=== PATIENT | male | born 1965 | race African-American/Black ===

== ENCOUNTER 2017-04-23 09:53 | Emergency (ER) | payer OTHER ==
[~2017-04-23] VITALS: Ht 172.7 cm; Wt 113.5 kg
[~2017-04-23 09:53] MED LIST: AMOX500C2 PO; IBUP400T22 PO; UDROBDM PO
[2017-04-23 09:55] VITALS: Ht 172.7 cm; Wt 113.5 kg
--- NOTE | 2017-04-23 10:24 | ERD ---
ER Documentation Chief Complaint Date/Time DATE: 04/23/17 TIME: 10:19 Chief Complaint LEFT LEG SWELLING NEAR THE ANKLE HPI 51 year old male comes in with left extremity pain and swelling for 1-2 weeks.Patient states that he has been currently going to the gym 2 to stairs, and he has been sleeping with his leg off the bed due to pain at his left knee. Subsequently, he developed swelling of his left lower extremity around the ankle and has had pain. Patient also states that his right leg is bothering him but not as much as the left side. He denies trauma. Denies chest pain, shortness of breath or orthopnea. ROS All systems reviewed and are negative except as per history of present illness. Medications Home Meds Active Scripts Naproxen* (Naprosyn*) 500 Mg Tablet, 500 MG PO BID Y for PAIN AND/OR INFLAMMATION, #30 TAB Prov:CLAUDIA MINAYA PA-C 04/23/17 Guaifenesin-Dextromethorphan* (Robitussin* DM) 100MG/10MG/5ML Syrup, 5 ML PO Q6H Y for COUGH, #120 ML 0 Refills Prov:MINNIE RAMSEY PA-C 10/08/15 Amoxicillin* (Amoxicillin*) 500 Mg Cap, 500 MG PO TID, #21 CAP 0 Refills Prov:MINNIE RAMSEY PA-C 10/08/15 Ibuprofen* (Motrin*) 400 Mg Tab, 400 MG PO Q6, #30 TAB 0 Refills Prov:MINNIE RAMSEY PA-C 10/08/15 Allergies Allergies: Coded Allergies: No Known Allergy (Unverified , 04/23/17) PMhx/Soc Medical and Surgical Hx: pt denies Surgical Hx History of Surgery: No Anesthesia Reaction: No Hx Neurological Disorder: No Hx Respiratory Disorders: No Hx Cardiac Disorders: Yes (hypertesnion; pre diabetes) Hx Psychiatric Problems: No Hx Miscellaneous Medical Probl: Yes (umbilical hernia) Hx Alcohol Use: Yes (socially) Hx Substance Use: No Hx Tobacco Use: No Smoking Status: Never smoker Physical Exam Vitals Vital Signs Date Time Temp Pulse Resp B/P Pulse Ox O2 Delivery O2 Flow Rate FiO2 04/23/17 09:55 97.3 90 18 138/88 97 Physical Exam General: Well-developed, well-nourished. The patient appears in no acute distress. HEENT: Head is normocephalic, atraumatic. No scleral icterus. Neck: Supple. Nontender. Lungs: Clear to auscultation. Normal air movement. Heart: Regular rate and rhythm. S1 and S2 are normal. No murmurs, gallops, or rubs. Abdomen: Soft, nontender, nondistended. Bowel sounds are normoactive. Extremities: No acute bony deformities of the left knee, full R OM. Negative Homans sign. Patient has swelling around the left ankle and foot. There is no pedal edema. Right lower extremity has mild swelling, no pedal edema. Dorsalis pedis pulses 2+ bilaterally. Neurologic: Alert and oriented 3. No focal deficits. Skin: Normal turgor. No rash or lesions. Results 24 hrs DIAGNOSTIC IMAGING REPORT Patient: CHRISTIANO BEST : 1965 Age: 51 Sex: M MR #: [id number] DOS: 04/23/17 1012 Ordering MD: CLAUDIA MINAYA PA-C Location: [facility] Room/Bed: PROCEDURE: Left knee series CLINICAL INDICATION: Pain TECHNIQUE: AP, lateral and oblique images were obtained of the left knee. COMPARISON: None FINDINGS: There is moderate degenerate joint disease left knee worse involving the medial compartment. There is no evidence of acute fracture or dislocation. The bony mineralization is normal. No focal bony blastic or lytic lesions. Is a small left knee joint effusion. IMPRESSION: 1. Moderate degenerate joint disease left knee without evidence acute fracture dislocation per 2. Small left knee joint effusion. RPTAT:AAJJ Physician Tahir Date Time Electronically viewed and signed by Physician Tahir on 04/23/2017 12:01 BM/ CC: CLAUDIA MINAYA PA-C DIAGNOSTIC IMAGING REPORT Patient: CHRISTIANO BEST : 1965 Age: 51 Sex: M MR #: [id number] DOS: 04/23/17 1015 Ordering MD: CLAUDIA MINAYA PA-C Location: [facility] Room/Bed: PROCEDURE: Ultrasound of the bilateral lower extremity venous system. CLINICAL INDICATION: Bilateral leg pain and swelling, deep venous thrombosis TECHNIQUE: Abdalla scale with and without compression, color doppler, spectral doppler of the venous system of the bilateral lower extremities was performed. Venous augmentation maneuvers were utilized. COMPARISON: No prior studies are available for comparison. FINDINGS: Right: Common femoral vein: Patent. Femoral vein: Patent. Popliteal vein: Patent. Calf veins: Patent. No soft tissue abnormalities are identified. Left: Common femoral vein: Patent. Femoral vein: Patent. Popliteal vein: Patent. Calf veins: Patent. No soft tissue abnormalities are identified. IMPRESSION: No evidence of a deep vein thrombosis within the bilateral lower extremities. RPTAT: AADD .Lemuel Hartley MD, Date Time Electronically viewed and signed by .Lemuel Hartley MD, on 04/23/2017 11:52 .B/ CC: CALUDIA MINAYA PA-C Procedures/MDM 51-year-old male comes in with left lower extremity pain and swelling, patient likely is causing swelling to the position and when she sleeps in. Patient will be advised to take NSAIDs and use a compression stocking. He likely has some mild arthritis of the left knee exacerbated with exercise. There are no signs of CHF, cellulitis, DVT. No signs of fracture dislocation or neurovascular injury. Departure Diagnosis: Primary Impression: Pain of left leg Condition: Good CLAUDIA MINAYA PA-C Apr 23, 2017 10:24
--- NOTE | 2017-04-23 11:53 | RADRPT ---
PROCEDURE: Ultrasound of the bilateral lower extremity venous system. CLINICAL INDICATION: Bilateral leg pain and swelling, deep venous thrombosis TECHNIQUE: Abdalla scale with and without compression, color doppler, spectral doppler of the venous system of the bilateral lower extremities was performed. Venous augmentation maneuvers were utilized . COMPARISON: No prior studies are available for comparison. FINDINGS: Right: Common femoral vein: Patent. Femoral vein: Patent. Popliteal vein: Patent. Calf veins: Patent. No soft tissue abnormalities are identified. Left: Common femoral vein: Patent. Femoral vein: Patent. Popliteal vein: Patent. Calf veins: Patent. No soft tissue abnormalities are identified. IMPRESSION: No evidence of a deep vein thrombosis within the bilateral lower extremities. RPTAT: AADD .Lemuel Hartley MD, MD Date Time Electronically viewed and signed by .Lemuel Hartley MD, MD on 04/23/2017 11:52 .B/
--- NOTE | 2017-04-23 12:01 | RADRPT ---
PROCEDURE: Left knee series CLINICAL INDICATION: Pain TECHNIQUE: AP, lateral and oblique images were obtained of the left knee. COMPARISON: None FINDINGS: There is moderate degenerate joint disease left knee worse involving the medial compartment. There i s no evidence of acute fracture or dislocation. The bony mineralization is normal. No focal bony williams stic or lytic lesions. Is a small left knee joint effusion. IMPRESSION: 1. Moderate degenerate joint disease left knee without evidence acute fracture dislocation per 2. Small left knee joint effusion. RPTAT:AAJJ Physician Tahir Date Time Electronically viewed and signed by Isac Mcclure Physician on 04/23/2017 12:01 BM/
[2017-04-23] MEDS ORDERED: NAPR-260 PO (12:28)
== END 2017-04-23 13:03 | disposition home or self-care (01) ==
LOC: FTE 09:53
DX: M79.605 Pain in left leg (principal); I10 Essential (primary) hypertension
CPT/HCPCS: 73562; 93970; Z7502

== ENCOUNTER 2017-05-25 11:49 | Emergency (ER) | payer OTHER ==
[~2017-05-25] VITALS: Ht 182.9 cm; Wt 113.0 kg
[~2017-05-25 11:49] MED LIST changes: +NAPR-260 PO
[2017-05-25 11:52] VITALS: Ht 182.9 cm; Wt 113.0 kg
--- NOTE | 2017-05-25 14:05 | ERD ---
ER Documentation Chief Complaint Chief Complaint LOWER LEG/CALF PAIN HPI 51-year-old male with a history of stroke presenting with a chief complaint of leg calf pain and swelling 4 days. Similar symptoms 1 month ago that was worked up with x-ray and ultrasound and was negative. Patient denies trauma, loss of range of motion, numbness, tingling, or other rapidly progressive neurological deficits. He has taken ibuprofen with minimal relief. Worse with movement and palpation. No alleviating factors. Patient has no other complaints and describes no other associated manifestations. Nursing notes have been reviewed and are consistent with history given. ROS All systems reviewed and are negative except as per history of present illness. Medications Home Meds Active Scripts Naproxen* (Naprosyn*) 500 Mg Tablet, 500 MG PO BID Y for PAIN AND/OR INFLAMMATION, #30 TAB Prov:CLAUDIA MINAYA PA-C 04/23/17 Guaifenesin-Dextromethorphan* (Robitussin* DM) 100MG/10MG/5ML Syrup, 5 ML PO Q6H Y for COUGH, #120 ML 0 Refills Prov:MINNIE RAMSEY PA-C 10/08/15 Amoxicillin* (Amoxicillin*) 500 Mg Cap, 500 MG PO TID, #21 CAP 0 Refills Prov:MINNIE RAMSEY PA-C 10/08/15 Ibuprofen* (Motrin*) 400 Mg Tab, 400 MG PO Q6, #30 TAB 0 Refills Prov:MINNIE RAMSEY PA-C 10/08/15 Allergies Allergies: Coded Allergies: No Known Allergy (Unverified , 04/23/17) PMhx/Soc History of Surgery: No Anesthesia Reaction: No Hx Neurological Disorder: No Hx Respiratory Disorders: No Hx Cardiac Disorders: Yes (hypertesnion; pre diabetes) Hx Psychiatric Problems: No Hx Miscellaneous Medical Probl: Yes (umbilical hernia) Hx Alcohol Use: Yes (socially) Hx Substance Use: No Hx Tobacco Use: No Smoking Status: Never smoker Physical Exam Vitals Vital Signs Date Time Temp Pulse Resp B/P Pulse Ox O2 Delivery O2 Flow Rate FiO2 05/25/17 11:52 98.7 90 22 138/96 99 Physical Exam Const: Overweight 51-year-old male no acute distress. Head: Atraumatic Eyes: Normal Conjunctiva ENT: Normal External Ears, Nose and Mouth. Neck: Full range of motion..~ No meningismus. Resp: Clear to auscultation bilaterally Cardio: Regular rate and rhythm, no murmurs. Posterior tibial and dorsalis pedis pulses 2+ bilaterally. Cap refill less than 2 seconds. Skin is warm. Abd: Soft, non tender, non distended. Normal bowel sounds Skin: No petechiae or rashes Back: No midline or flank tenderness Ext: No cyanosis, or edema. Mild tenderness to palpation of the left knee. Tendons intact. Negative Lockman's. Neur: Awake and alert. Abnormal gait secondary to prior stroke. Psych: Normal Mood and Affect Procedures/MDM 51-year-old male with history of stroke presents with left lower extremity pain. Previous visit shows venous ultrasound and x-ray being unremarkable. Venous ultrasound and x-ray were obtained again today and given the following results: Ultrasound unremarkable. X-ray: Joint narrowing and osteophytes Findings are most consistent with arthritis. No trauma. No warmth or signs of septic joint. I have no suspicion for other serious bacterial infection, acute bony pathology, or neurovascular compromise. Patient will be advised to continue ibuprofen Tylenol for pain management. Narcotics are not indicated. I have spoke with the patient regarding their condition and future management. They have verbally responded that they understand their status and treatment plan. The patients vitals are stable, and their current condition is appropriate for discharge. The patient will be given discharge instructions with return precautions. Departure Diagnosis: Primary Impression: Pain of left leg Condition: Stable Additional Instructions: Follow up with your PCP within the next 1-3 days for a more thorough evaluation and a possible referral to a specialist. Return the the emergency department immediately if symptoms worsen or change. If you have any questions regarding medications, ask your pharmacist or us before you leave. If any adverse reactions occur while taking your medications, discontinue the treatment and return to the emergency department immediately. Take your medications as directed, and complete the entire course of treatment. CHAYO CANALES PA-C May 25, 2017 14:05
--- NOTE | 2017-05-25 15:38 | RADRPT ---
PROCEDURE: US Lower extremity Venous. CLINICAL INDICATION: Pain and swelling TECHNIQUE: Multiple sonographic images of the left lower extremity deep venous system was obtained utilizing grayscale, color-flow, compressive sonography and doppler imaging with augmentation. The images were reviewed on a PACS workstation. COMPARISON: None. FINDINGS: There is normal compressibility and flow within the left common femoral, deep femoral, superficial f emoral, posterior tibial, peroneal and popliteal veins. IMPRESSION: No sonographic evidence for deep venous thrombosis. RPTAT:AAJJ Physician Jose Date Time Electronically viewed and signed by Physician Jose on 05/25/2017 15:38 /
--- NOTE | 2017-05-25 15:39 | RADRPT ---
PROCEDURE: Left knee x-ray CLINICAL INDICATION: Pain, and TECHNIQUE: AP, lateral and oblique views of the knee were obtained. COMPARISON: 04/23/2017 FINDINGS: There is normal mineralization. No fracture is identified. There is moderate joint space narrowing in the medial femorotibial compartment with medial and later al osteophytes. A small joint effusion is present. There is no significant soft tissue swelling. IMPRESSION: 1. Moderate joint space narrowing in the medial femorotibial compartment with medial and lateral os teophytes. 2. Small joint effusion is present. RPTAT:AAJJ Physician Jose Date Time Electronically viewed and signed by Marcio Silva Physician on 05/25/2017 15:39 /
[2017-05-25 16:10] VITALS: BP 170/94; PULSE 60; RESP 16
== END 2017-05-25 16:11 | disposition home or self-care (01) ==
LOC: FTE 11:49
DX: M79.605 Pain in left leg (principal); I10 Essential (primary) hypertension
CPT/HCPCS: 73562; 93971; Z7502

== ENCOUNTER 2017-12-30 15:37 | Emergency (ER) | END 2017-12-30 18:08 | disposition home or self-care (01) ==

== ENCOUNTER 2018-03-27 12:56 | Emergency (ER) | END 2018-03-27 16:57 | disposition home or self-care (01) ==

== ENCOUNTER 2018-09-15 18:18 | Observation (INO) | payer OTHER ==
[~2018-09-15] VITALS: Ht 182.9 cm; Wt 109.2 kg
[~2018-09-15 18:18] MED LIST changes: +CLIN300C10 PO; +GUAI5SYR2 PO; +IBUP-1542 PO; +IBUP-1561 PO; -IBUP400T22 PO; +MUPI22OI2 TOP; -NAPR-260 PO; +NAPR-985 PO; -UDROBDM PO
--- NOTE | 2018-09-15 18:46 | ERD ---
ER Documentation Chief Complaint Chief Complaint DIZZINESS X 4 DAYS HPI 52-year-old gentleman history of hypertension, diabetes who presents to the emergency room with generalized symptoms. The patient states that he felt generally weak over the past 2-3 days. He did not take his blood pressure medication and his blood pressure has been elevated. He is describing occipital headache. He also describes some generalized fatigue and denies any chest pain. No nausea or diaphoresis. No exertional symptoms. ROS All systems reviewed and are negative except as per history of present illness. Medications Home Meds Reported Medications Atorvastatin* (Atorvastatin*) 80 Mg Tablet, 80 MG PO QHS, #30 TAB 09/15/18 Amlodipine Besylate* (Norvasc*) 5 Mg Tablet, 5 MG PO DAILY, TAB 09/15/18 Ibuprofen* (Ibuprofen*) 600 Mg Tablet, 600 MG PO BID, TAB 09/15/18 Losartan-Hydrochlorothiazide (Losartan-HCTZ) 100-12.5 Mg Tab, 1 TAB PO DAILY, TAB 09/15/18 Metformin Hcl* (Metformin Hcl*) 500 Mg Tablet, 500 MG PO WITH BREAKFAST DINNE, #60 TAB 09/15/18 Discontinued Scripts Ibuprofen* (Motrin*) 600 Mg Tab, 600 MG PO Q6H PRN for PAIN AND OR ELEVATED TEMP, #30 TAB Prov:JIMMIE ATKINS NP 03/27/18 Mupirocin* (Bactroban*) 2% -22 Gram Oint...g., 1 APPLIC TOP BID for 7 Days, EA Prov:KRISHNA CHAPA MD 12/30/17 Clindamycin Hcl* (Clindamycin Hcl*) 300 Mg Capsule, 300 MG PO TID for 10 Days, CAP Prov:KRISHNA CHAPA MD 12/30/17 Naproxen* (Naprosyn*) 500 Mg Tablet, 500 MG PO BID PRN for PAIN AND/OR INFLAMMATION, #30 TAB Prov:CLAUDIA HAN PA-C 04/23/17 Guaifenesin-Dextromethorphan* (Robitussin* DM) 100MG/10MG/5ML Syrup, 5 ML PO Q6H PRN for COUGH, #120 ML 0 Refills Prov:MINNIE RAMSEY PA-C 10/08/15 Amoxicillin* (Amoxicillin*) 500 Mg Cap, 500 MG PO TID, #21 CAP 0 Refills Prov:MINNIE RAMSEY PA-C 10/08/15 Ibuprofen* (Motrin*) 400 Mg Tab, 400 MG PO Q6, #30 TAB 0 Refills Prov:BRAULIOMINNIE LANDERS 10/08/15 Allergies Allergies: Coded Allergies: No Known Allergy (Unverified , 09/15/18) PMhx/Soc History of Surgery: No Anesthesia Reaction: No Hx Neurological Disorder: No Hx Respiratory Disorders: No Hx Cardiac Disorders: Yes (HTN ) Hx Psychiatric Problems: No Hx Miscellaneous Medical Probl: Yes (umbilical hernia, DM ) Hx Alcohol Use: Yes (socially) Hx Substance Use: No Hx Tobacco Use: No FmHx Family History: diabetes Physical Exam Vitals Vital Signs Date Temp Pulse Resp B/P (MAP) Pulse Ox O2 O2 Flow FiO2 Time Delivery Rate 09/15/18 75 15 127/83 100 Room Air 21:37 (98) 09/15/18 98.1 88 18 149/89 99 18:20 (109) Physical Exam General: Well developed, well nourished, no acute distress Head: Normocephalic, atraumatic. Eyes: Pupils equally reactive, EOM intact ENT: Moist mucous membranes Neck: Supple, no lymphadenopathy Respiratory: Lungs clear bilaterally, no distress Cardiovascular: RRR, no murmurs, rubs, or gallops Abdominal: Soft, non-tender, non-distended, no peritoneal signs : Deferred MSK: No edema, no unilateral swelling, 5/5 strength Neurologic: Alert and oriented, moving all extremities, normal speech, no focal weakness, no cerebellar signs Skin: No rash Psych: Normal mood Result Diagram: 09/15/18185609/15/181856 Results 24 hrs Laboratory Tests Test 09/15/18 18:57 White Blood Count 4.5 10^3/ul Red Blood Count 5.45 10^6/ul Hemoglobin 13.2 g/dl Hematocrit 41.2 % Mean Corpuscular Volume 75.6 fl Mean Corpuscular Hemoglobin 24.2 pg Mean Corpuscular Hemoglobin Concent 32.0 g/dl Red Cell Distribution Width 15.0 % Platelet Count 211 10^3/UL Mean Platelet Volume 9.8 fl Immature Granulocytes % 0.200 % Neutrophils % 49.9 % Lymphocytes % 37.1 % Monocytes % 10.2 % Eosinophils % 2.2 % Basophils % 0.4 % Nucleated Red Blood Cells % 0.0 /100WBC Immature Granulocytes # 0.010 10^3/ul Neutrophils # 2.2 10^3/ul Lymphocytes # 1.7 10^3/ul Monocytes # 0.5 10^3/ul Eosinophils # 0.1 10^3/ul Basophils # 0.0 10^3/ul Nucleated Red Blood Cells # 0.0 10^3/ul Sodium Level 135 mmol/L Potassium Level 3.8 mmol/L Chloride Level 97 mmol/L Carbon Dioxide Level 29 mmol/L Anion Gap 9 Blood Urea Nitrogen 21 mg/dl Creatinine 0.77 mg/dl Est Glomerular Filtrat Rate mL/min > 60 mL/min Glucose Level 93 mg/dl Calcium Level 9.3 mg/dl Troponin I < 0.012 ng/ml Current Medications Medications Dose Sig/Shannon Start Time Status Last (Trade) Ordered Route PRN Stop Time Admin Dose Reason Admin Morphine 4 mg ONCE STAT 09/15/18 DC 09/15/18 Sulfate IV 19:28 19:34 (morphine) 09/15/18 19:29 Ondansetron 4 mg ONCE STAT 09/15/18 DC 09/15/18 HCl (Zofran ODT 19:28 19:34 Odt) 09/15/18 19:29 Aspirin 162 mg ONCE ONCE 09/15/18 DC 09/15/18 (Aspirin) PO 20:30 20:33 09/15/18 20:31 Ondansetron 4 mg ER BRIDGE 09/15/18 HCl (Zofran PRN IV 20:30 Inj) NAUSEA/VOMITI 09/16/18 20:29 NG 650 mg ER BRIDGE 09/15/18 Acetaminophen PRN PO 20:30 (Tylenol .MILD PAIN 09/16/18 20:29 Tab) 1-3 OR TEMP Amlodipine 5 mg DAILY PO 09/16/18 UNV Besylate 09:00 (Norvasc) 80 mg QHS PO 09/16/18 UNV Atorvastatin 21:00 Calcium (Lipitor) Losartan 100 mg DAILY PO 09/16/18 UNV Potassium 09:00 (Cozaar) Procedures/MDM EKG, MONITORS, & DIAGNOSTIC IMAGING: EKG: I reviewed and interpreted a 12-lead EKG. Rhythm: Normal sinus rhythm ST Changes: No contiguous ST segment elevations T waves: T wave inversions in the inferior and lateral leads Impression: Abnormal EKG, changes from prior EKG noted Repeat EKG: I reviewed and interpreted a 12-lead EKG. Rhythm: Normal sinus rhythm ST Changes: No contiguous ST segment elevations T waves: T wave inversions in the inferior and lateral leads Impression: Abnormal EKG, changes from prior EKG noted Chest x-ray: I reviewed and interpreted a 1 view of the chest Mediastinum: No enlargement Cardiac silhouette: No cardiomegaly Airspace: Clear lung george bilaterally without evidence of pneumothorax Bones: No evidence of fracture CT brain: IMPRESSION: 1. No acute intracranial hemorrhage, transcortical infarction or mass effect. 2. Mild intracranial atherosclerosis and chronic small vessel ischemic changes. 3. Age indeterminate infarct in the right cooley radiata/lentiform nucleus. Please note MRI is more sensitive for detection of acute ischemia and can be obtained as clinically warranted. 4. Partially empty sella turcica. 5. Mild generalized cerebral volume loss. RPTAT: HFN PROCEDURES: [None] LAB INTERPRETATION: * neg trop MEDICAL DECISION MAKING: The patient's history, physical exam and clinical presentation is concerning for hypertensive urgency versus emergency. The patient's EKG shows T wave inversions in the inferior and lateral leads concerning for possible cardiac process. Given the patient's elevated blood pressure I would recommend hospitalization for serial enzymes and cardiology consultation. CT brain is also appropriate. ER COURSE: * The patient has an abnormal EKG. His symptoms are possibly consistent with hypertensive urgency versus emergency. Inpatient hospitalization for further evaluation would be appropriate. * ASA given CONSULTATION: [None] DISPOSITION PLAN: Telemetry admission for abnormal EKG Accepting care team and consultations: I discussed the current laboratory data, diagnostic imaging and emergency care provided. Admitting team: Dr Han Admitting team indication: Insurance directed Departure Diagnosis: Primary Impression: Hypertensive urgency Additional Impression: Abnormal EKG Condition: Stable FELICIANO RAO MD Sep 15, 2018 18:46
[2018-09-15] MEDS ORDERED: LOSA1TAB28 PO (19:13)
[2018-09-15] MEDS ORDERED: METF500T24 PO (19:13)
[2018-09-15] MEDS ORDERED: AMLO5TAB4 PO (19:14)
[2018-09-15] MEDS ORDERED: IBUP-1542 PO (19:14)
[2018-09-15] MEDS ORDERED: ATOR-2 PO (19:15)
[2018-09-15] MEDS ORDERED: ONDANSETRON (ODT) 4 MG TAB ODT STA (19:28)
[2018-09-15] MEDS ORDERED: morphine 4 MG/ML VIAL IV STA (19:28)
[2018-09-15] MEDS ORDERED: ONDANSETRON 4 MG INJ IV PRN ×2 (20:30→23:00)
[2018-09-15] MEDS ORDERED: ASPIRIN 81 MG TAB PO ONE (20:30)
[2018-09-15] MEDS ORDERED: ACETAMINOPHEN 325 MG TAB PO PRN ×2 (20:30→23:00)
--- NOTE | 2018-09-15 22:39 | HP ---
Date/Time of Note Date/Time of Note DATE: 09/15/18 TIME: 22:39 Assessment/Plan VTE Prophylaxis Pharmacological prophylaxis: other Lines/Catheters IV Catheter Type (from Nrsg): Saline Lock Assessment/Plan Hospital Course Objective Physical exam General: Patient is laying in bed and answers questions appropriately Mentation: Patient is alert and oriented 4, Head: Normocephalic atraumatic Eyes: EOMI, pupils reactive to light Neck: Supple, nontender, midline Respiratory: Clear to auscultation bilaterally Cardiovascular: regular rate, no obvious murmurs Gastrointestinal: non-tender to palpation, bowel sounds heard. Umbilical hernia present, easily reducible Neurological: Moves all extremities spontaneously Skin: No new skin lesions Assessment and plan Dizziness, generalized weakness -CT head done, does not appear to have any emergent pathology, however there is a age indeterminate infarct, will get MRI, of note patient's family states he has suffered from 2 strokes in the past Abnormal EKG -Patient's EKG is worrisome for inferior and possible left lateral ischemia with T wave inversions, cardiology consulted, Dr. Chaves, covering for Dr. Posadas -Troponin currently negative, will continue to trend -No chest pain Hypertension -Patient off medications for couple days however blood pressure is stable here in the ED, will adjust medication and continue patient on a low dose of 1 of his medications Diabetes mellitus -Insulin sliding scale while in house Disposition -Await MRI and await cardiology consultation, continue to trend troponin Result Diagram: 09/15/18185609/15/18 1857 Results 24hrs Laboratory Tests Test 09/15/18 18:57 White Blood Count 4.5 L Red Blood Count 5.45 Hemoglobin 13.2 L Hematocrit 41.2 L Mean Corpuscular Volume 75.6 L Mean Corpuscular Hemoglobin 24.2 L Mean Corpuscular Hemoglobin Concent 32.0 Red Cell Distribution Width 15.0 H Platelet Count 211 Mean Platelet Volume 9.8 Immature Granulocytes % 0.200 Neutrophils % 49.9 Lymphocytes % 37.1 Monocytes % 10.2 Eosinophils % 2.2 Basophils % 0.4 Nucleated Red Blood Cells % 0.0 Immature Granulocytes # 0.010 Neutrophils # 2.2 Lymphocytes # 1.7 Monocytes # 0.5 Eosinophils # 0.1 Basophils # 0.0 Nucleated Red Blood Cells # 0.0 Sodium Level 135 Potassium Level 3.8 Chloride Level 97 Carbon Dioxide Level 29 Anion Gap 9 Blood Urea Nitrogen 21 H Creatinine 0.77 Est Glomerular Filtrat Rate mL/min > 60 Glucose Level 93 Calcium Level 9.3 Troponin I < 0.012 HPI/ROS Admit Date/Time Admit Date/Time Hx of Present Illness Patient is an male with a past medical history significant for questionable diabetes, hypertension, dyslipidemia who presents to [facility] for generalized symptoms of weakness, neck pain, dizziness. Patient's family member is at bedside and helps with the story, lo torre's symptoms began approximately 2 days ago, patient also has not been consistently taking his blood pressure medications. Patient states that he does not have any chest pain but feels just generalized malaise and weakness. Patient denies chest pain, shortness of breath, abdominal pain, leg pain. PMH/Family/Social Past Medical History Medications Current Medications Ondansetron HCl (Zofran Inj) 4 mg ER BRIDGE PRN IV NAUSEA/VOMITING; Start 09/15/18 at 20:30; Stop 09/16/18 at 20:29 Acetaminophen (Tylenol Tab) 650 mg ER BRIDGE PRN PO .MILD PAIN 1-3 OR TEMP; Start 09/15/18 at 20:30; Stop 09/16/18 at 20:29 Atorvastatin Calcium (Lipitor) 80 mg QHS PO ; Start 09/16/18 at 21:00 Losartan Potassium (Cozaar) 25 mg DAILY PO ; Start 09/16/18 at 09:00 Diagnostic Test (Pha) (Accu-Chek) 1 ea 02 XX ; Start 09/16/18 at 02:00 Insulin Aspart (Novolog Insulin Pen) NOVOLOG *MILD* ALGORITHM WITH MEALS BEDTIME SC ; Start 09/16/18 at 08:00 Aspirin (Aspirin) 81 mg DAILY PO ; Start 09/16/18 at 09:00 Coded Allergies: No Known Allergy (Unverified , 09/15/18) Social History Smoking Status: Never smoker Exam/Review of Systems Vital Signs Vitals Vital Signs Date Temp Pulse Resp B/P (MAP) Pulse Ox O2 O2 Flow FiO2 Time Delivery Rate 09/15/18 75 15 127/83 100 Room Air 21:37 (98) 09/15/18 98.1 18:20 JEIMY MINAYA Sep 15, 2018 22:39
[2018-09-15] MEDS ORDERED: DEXTROSE 50% 50 ML SYRINGE IV PRN ×2 (23:00)
[2018-09-15] MEDS ORDERED: GLUCOSE GEL 15 GRAM TUBE BUCCAL PRN (23:00)
[2018-09-15] MEDS ORDERED: GLUCOSE GEL 15 GRAM TUBE PO PRN ×2 (23:00)
[2018-09-15] MEDS ORDERED: NACL 0.9% 3 ML SYG IV SCH (23:00)
[2018-09-15] MEDS ORDERED: GLUCAGON 1 MG INJ IM PRN (23:00)
[2018-09-15] MEDS: SOD CHLORIDE 0.9% 1,000 ML IV SCH (23:14)
[2018-09-16] MEDS: ACCU-CHEK XX SCH (02:27)
[2018-09-16] MEDS: HYDROCODONE/APAP (5/325) TAB PO PRN (04:23)
[2018-09-16] MEDS ORDERED: AMLODIPINE 5 MG TAB PO SCH (09:00)
[2018-09-16] MEDS ORDERED: LOSARTAN 50 MG TAB PO SCH ×2 (09:00)
[2018-09-16] MEDS ORDERED: LOSARTAN 25 MG TAB PO SCH (10:00)
[2018-09-16 14:39] VITALS: PULSE 82
[2018-09-16] MEDS: INSULIN ASPART [NOVOLOG] 3 ML PEN SC SCH ×4 (14:55→21:00)
[2018-09-16 15:11] VITALS: Ht 182.9 cm; Wt 109.2 kg
--- NOTE | 2018-09-16 15:12 | CONS ---
Assessment/Plan Assessment/Plan Hospital Course (Demo Recall) 1. Abnormal EKG with no chest pain and negative cardiac enzyme 2. Hypertension 3. Diabetes 4. History of CVA 5. Dyslipidemia 6. Obesity Recommendations At this point absence of any cardiac symptoms I recommend aggressive risk factor modification. We will increase the losartan. Diabetic control as per internal medicine. Given history of CVA patient should be on aspirin or Plavix daily Echocardiogram has been ordered and waiting to be done. Otherwise no further cardiac workup would be needed DC planning as per internal medicine Thank you for his referral. We will continue to follow along with you until Dr. Burns. Katharina returns on Tuesday LASHAUN NICHOLS MD FAC Consultation Date/Type/Reason Admit Date/Time Date of Consultation: Sep 16, 2018 Type of Consult Cardiology Reason for Consultation ABNORMAL ECG Requesting Provider: JEIMY MINAYA Date/Time of Note DATE: 09/16/18 TIME: 15:07 Hx of Present Illness Interventional cardiology consultation note ( COVERING FOR DR BURNS) Chief complaint: High blood pressure, elevated sugar level, neck pain, Reason for consult: Abnormal EKG History of present illness: Thank you for this referral. History was obtained from the patient discussion with his discussion with the staff and physicians This is a pleasant 52-year-old -Citizen Of [place] gentleman with history of hypertension diabetes dyslipidemia obesity who came to emergency room with multiple complaints. Patient said he take his medication regularly however his state that she is not very compliant with his medication does not exercise much either. Patient himself said that he did exercise with no chest pain or pressure. Denies any history of cardiac disorder to me. However his EKG was mildly abnormal for which I was kindly asked to evaluate and treat. Patient in fact came to the hospital multiple complaint including mostly because of his neck stiffness and discomfort and swelling as well as his high blood pressure and high sugar. He is currently feeling better Allergies: No known drug allergies Medications were reviewed as per medical reconciliation sheet Family history: Mother with stroke Social history: Does not smoke or drink Past medical history: History of CVA hypertension diabetes dyslipidemia obesity Review of system: Patient denies all others except for above-mentioned Past Medical History Home Meds Reported Medications Atorvastatin* (Atorvastatin*) 80 Mg Tablet, 80 MG PO QHS, #30 TAB 09/15/18 Amlodipine Besylate* (Norvasc*) 5 Mg Tablet, 5 MG PO DAILY, TAB 2/15/19 Ibuprofen* (Ibuprofen*) 600 Mg Tablet, 600 MG PO BID, TAB 09/15/18 Losartan-Hydrochlorothiazide (Losartan-HCTZ) 100-12.5 Mg Tab, 1 TAB PO DAILY, TAB 09/15/18 Metformin Hcl* (Metformin Hcl*) 500 Mg Tablet, 500 MG PO WITH BREAKFAST DINNE, #60 TAB 09/15/18 Discontinued Scripts Ibuprofen* (Motrin*) 600 Mg Tab, 600 MG PO Q6H PRN for PAIN AND OR ELEVATED TEMP, #30 TAB Prov:JIMMIE ATKINS SHALLOT CLEANER 03/27/18 Mupirocin* (Bactroban*) 2% -22 Gram Oint...g., 1 APPLIC TOP BID for 7 Days, EA Prov:KRISHNA CHAPA MD 12/30/17 Clindamycin Hcl* (Clindamycin Hcl*) 300 Mg Capsule, 300 MG PO TID for 10 Days, CAP Prov:KRISHNA CHAPA MD 12/30/17 Naproxen* (Naprosyn*) 500 Mg Tablet, 500 MG PO BID PRN for PAIN AND/OR INFLAMMATION, #30 TAB Prov:CLAUDIA MINAYA PA-C 04/23/17 Guaifenesin-Dextromethorphan* (Robitussin* DM) 100MG/10MG/5ML Syrup, 5 ML PO Q6H PRN for COUGH, #120 ML 0 Refills Prov:MINNIE RAMSEY PA-C 10/08/15 Amoxicillin* (Amoxicillin*) 500 Mg Cap, 500 MG PO TID, #21 CAP 0 Refills Prov:MINNIE RAMSEY PA-C 10/08/15 Ibuprofen* (Motrin*) 400 Mg Tab, 400 MG PO Q6, #30 TAB 0 Refills Prov:MINNIE RAMSEY PA-C 10/08/15 Medications Current Medications Ondansetron HCl (Zofran Inj) 4 mg ER BRIDGE PRN IV NAUSEA/VOMITING; Start 09/15/18 at 20:30; Stop 09/16/18 at 20:29 Acetaminophen (Tylenol Tab) 650 mg ER BRIDGE PRN PO .MILD PAIN 1-3 OR TEMP; Start 09/15/18 at 20:30; Stop 09/16/18 at 20:29 Atorvastatin Calcium (Lipitor) 80 mg QHS PO ; Start 09/16/18 at 21:00 Diagnostic Test (Pha) (Accu-Chek) 1 ea 02 XX Last administered on 09/16/18at 02:27; Admin Dose 1 EA; Start 09/16/18 at 02:00 Insulin Aspart (Novolog Insulin Pen) NOVOLOG *MILD* ALGORITHM WITH MEALS BEDTIME SC ; Start 09/16/18 at 08:00 Aspirin (Aspirin) 81 mg DAILY PO ; Start 09/16/18 at 09:00 Miscellaneous Information 1 ea NOTE XX ; Start 09/15/18 at 23:00 Glucose (Glutose) 15 gm Q15M PRN PO DECREASED GLUCOSE; Start 09/15/18 at 23:00 Glucose (Glutose) 22.5 gm Q15M PRN PO DECREASED GLUCOSE; Start 09/15/18 at 23:00 Dextrose (D50w Syringe) 25 ml Q15M PRN IV DECREASED GLUCOSE; Start 09/15/18 at 23:00 Dextrose (D50w Syringe) 50 ml Q15M PRN IV DECREASED GLUCOSE; Start 09/15/18 at 23:00 Glucagon (Glucagen) 1 mg Q15M PRN IM DECREASED GLUCOSE; Start 09/15/18 at 23:00 Glucose (Glutose) 15 gm Q15M PRN BUCCAL DECREASED GLUCOSE; Start 09/15/18 at 23:00 Sodium Chloride 1,000 ml @ 50 mls/hr Q20H IV Last administered on 09/15/18at 23:14; Admin Dose 50 MLS/HR; Start 09/15/18 at 22:36 IV Flush (NS 3 ml) 3 ml PER PROTOCOL IV ; Start 09/15/18 at 23:00 Ondansetron HCl (Zofran Inj) 4 mg Q6H PRN IV NAUSEA/VOMITING; Start 09/15/18 at 23:00 Aspirin (Aspirin) 81 mg DAILY PO ; Start 09/16/18 at 09:00 Acetaminophen (Tylenol Tab) 650 mg Q6H PRN PO .PAIN 1-3 OR TEMP; Start 09/15/18 at 23:00 Acetaminophen/ Hydrocodone Bitart ([place] (5/325)) 1 tab Q6H PRN PO .PAIN 4-6 Last administered on 09/16/18at 04:23; Admin Dose 1 TAB; Start 09/15/18 at 23:00 Losartan Potassium (Cozaar) 25 mg DAILY PO ; Start 09/16/18 at 10:00 Allergies: Coded Allergies: No Known Allergy (Unverified , 09/15/18) Social History Smoking Status: Never smoker Exam/Review of Systems Vital Signs Vitals Vital Signs Date Temp Pulse Resp B/P (MAP) Pulse Ox O2 O2 Flow FiO2 Time Delivery Rate 09/16/18 82 14:39 09/16/18 98.6 18 132/75 99 Room Air 14:04 (94) Exam Exam General: Obese gentleman in no acute distress HEENT: NC/AT. pupils are equal. round. NECK: NO JVD. no stridor. CV: RRR. systolic murmur; no gallop or rubs. PULM: no wheezing or rhonchi. GI: SOFT, NT, ND, no rebound or guarding Extremity: trace B/L LE edema. no clubbing. neuro: awake and alert, OX3. Psych: calm and pleasant rectal: deferred : normal EKG normal sinus rhythm. Nonspecific ST-T wave abnormalities Labs Result Diagram: 09/16/18 0400 09/16/18 0400 Results 24hrs Laboratory Tests Test 09/15/18 18:57 09/16/18 02:16 09/16/18 04:00 09/16/18 05:29 White Blood Count 4.5 L 3.6 L Red Blood Count 5.45 5.05 Hemoglobin 13.2 L 12.2 L Hematocrit 41.2 L 38.5 L Mean Corpuscular 75.6 L 76.2 L Volume Mean Corpuscular 24.2 L 24.2 L Hemoglobin Mean Corpuscular 32.0 31.7 L Hemoglobin Concent Red Cell 15.0 H 15.1 H Distribution Width Platelet Count 211 192 Mean Platelet Volume 9.8 9.6 Immature 0.200 0.000 L Granulocytes % Neutrophils % 49.9 40.5 Lymphocytes % 37.1 45.3 Monocytes % 10.2 11.1 H Eosinophils % 2.2 2.8 Basophils % 0.4 0.3 Nucleated Red Blood 0.0 0.0 Cells % Immature 0.010 0.000 Granulocytes # Neutrophils # 2.2 1.5 L Lymphocytes # 1.7 1.6 Monocytes # 0.5 0.4 Eosinophils # 0.1 0.1 Basophils # 0.0 0.0 Nucleated Red Blood 0.0 0.0 Cells # Sodium Level 135 137 Potassium Level 3.8 3.7 Chloride Level 97 101 Carbon Dioxide Level 29 31 Anion Gap 9 5 Blood Urea Nitrogen 21 H 19 Creatinine 0.77 0.79 Est Glomerular > 60 > 60 Filtrat Rate mL/min Glucose Level 93 97 Calcium Level 9.3 9.0 Troponin I < 0.012 < 0.012 < 0.012 Bedside Glucose 133 Hemoglobin A1c 6.3 H Magnesium Level 2.1 Total Bilirubin 0.2 Direct Bilirubin 0.00 Indirect Bilirubin 0.2 Aspartate Amino 25 Transf (AST/SGOT) Alanine 32 Aminotransferase (AL T/SGPT) Alkaline Phosphatase 50 Creatine Kinase 425 H 441 H Creatine Kinase 0.7 0.7 Index Creatinine Kinase MB 2.95 H 3.05 H (Mass) Total Protein 6.7 Albumin 3.8 Globulin 2.90 Albumin/Globulin 1.31 Ratio Triglycerides Level 74 Cholesterol Level 126 LDL Cholesterol, 89 Calculated HDL Cholesterol 22 L Cholesterol/HDL 5.7 Ratio Thyroid Stimulating 0.698 Hormone (TSH) Medications Medications Current Medications Ondansetron HCl (Zofran Inj) 4 mg ER BRIDGE PRN IV NAUSEA/VOMITING; Start 09/15/18 at 20:30; Stop 09/16/18 at 20:29 Acetaminophen (Tylenol Tab) 650 mg ER BRIDGE PRN PO .MILD PAIN 1-3 OR TEMP; Start 09/15/18 at 20:30; Stop 09/16/18 at 20:29 Atorvastatin Calcium (Lipitor) 80 mg QHS PO ; Start 09/16/18 at 21:00 Diagnostic Test (Pha) (Accu-Chek) 1 ea 02 XX Last administered on 09/16/18at 02:27; Admin Dose 1 EA; Start 09/16/18 at 02:00 Insulin Aspart (Novolog Insulin Pen) NOVOLOG *MILD* ALGORITHM WITH MEALS BEDTIME SC ; Start 09/16/18 at 08:00 Aspirin (Aspirin) 81 mg DAILY PO ; Start 09/16/18 at 09:00 Miscellaneous Information 1 ea NOTE XX ; Start 09/15/18 at 23:00 Glucose (Glutose) 15 gm Q15M PRN PO DECREASED GLUCOSE; Start 09/15/18 at 23:00 Glucose (Glutose) 22.5 gm Q15M PRN PO DECREASED GLUCOSE; Start 09/15/18 at 23:00 Dextrose (D50w Syringe) 25 ml Q15M PRN IV DECREASED GLUCOSE; Start 09/15/18 at 23:00 Dextrose (D50w Syringe) 50 ml Q15M PRN IV DECREASED GLUCOSE; Start 09/15/18 at 23:00 Glucagon (Glucagen) 1 mg Q15M PRN IM DECREASED GLUCOSE; Start 09/15/18 at 23:00 Glucose (Glutose) 15 gm Q15M PRN BUCCAL DECREASED GLUCOSE; Start 09/15/18 at 23:00 Sodium Chloride 1,000 ml @ 50 mls/hr Q20H IV Last administered on 09/15/18at 23:14; Admin Dose 50 MLS/HR; Start 09/15/18 at 22:36 IV Flush (NS 3 ml) 3 ml PER PROTOCOL IV ; Start 09/15/18 at 23:00 Ondansetron HCl (Zofran Inj) 4 mg Q6H PRN IV NAUSEA/VOMITING; Start 09/15/18 at 23:00 Aspirin (Aspirin) 81 mg DAILY PO ; Start 09/16/18 at 09:00 Acetaminophen (Tylenol Tab) 650 mg Q6H PRN PO .PAIN 1-3 OR TEMP; Start 09/15/18 at 23:00 Acetaminophen/ Hydrocodone Bitart ([place] (5/325)) 1 tab Q6H PRN PO .PAIN 4-6 Last administered on 09/16/18at 04:23; Admin Dose 1 TAB; Start 09/15/18 at 23:00 Losartan Potassium (Cozaar) 25 mg DAILY PO ; Start 09/16/18 at 10:00 LASHAUN NICHOLS MD Sep 16, 2018 15:12
[2018-09-16 15:45] VITALS: BP 126/76; PULSE 76; RESP 20
[2018-09-16 16:00] VITALS: PULSE 85
[2018-09-16] MEDS: SOD CHLORIDE 0.9% 1,000 ML IV SCH (16:11)
[2018-09-16] MEDS: ASPIRIN 81 MG TAB PO SCH ×2 (16:11)
--- NOTE | 2018-09-16 16:37 | PN ---
Date/Time of Note Date/Time of Note DATE: 09/16/18 TIME: 16:34 Assessment/Plan VTE Prophylaxis SCD applied (from Nsg): Yes Pharmacological prophylaxis: other Lines/Catheters IV Catheter Type (from Nrsg): Saline Lock Assessment/Plan Hospital Course S: Patient presently getting MRI brain. Seen by cardiology team earlier today. O: VS - see below Physical exam -Unable to be performed presently as the patient is off the floor now getting MRI brain Assessment and plan: 52-year-old male who presents with: # Dizziness, generalized weakness-CT head done, does not appear to have any emergent pathology, however there is a age indeterminate infarct, -Follow-up results of brain MRI, of note patient's family states he has suf fered from 2 strokes in the past -Cardiology team is lower the dose of losartan. # Abnormal EKG-Patient's EKG was initially worrisome for inferior and possible left lateral ischemia with T wave inversions, cardiology Dr. Chaves saw patient earlier -Troponin currently negative, will continue to trend -Adjustments made to cardiac medications, follow-up echo and cardiology recommended # Hypertension-presently stable -Continue current cardiac medications as recommended by cardiology team, mon itor blood pressure carefully # Diabetes mellitus -A1c equals 6.3 -Monitor, continue insulin sliding scale while in house Result Diagram: 09/16/18 0400 09/16/18 0400 Results 24hrs Laboratory Tests Test 09/15/18 18:57 09/16/18 02:16 09/16/18 04:00 09/16/18 05:29 White Blood Count 4.5 L 3.6 L Red Blood Count 5.45 5.05 Hemoglobin 13.2 L 12.2 L Hematocrit 41.2 L 38.5 L Mean Corpuscular 75.6 L 76.2 L Volume Mean Corpuscular 24.2 L 24.2 L Hemoglobin Mean Corpuscular 32.0 31.7 L Hemoglobin Concent Red Cell 15.0 H 15.1 H Distribution Width Platelet Count 211 192 Mean Platelet Volume 9.8 9.6 Immature 0.200 0.000 L Granulocytes % Neutrophils % 49.9 40.5 Lymphocytes % 37.1 45.3 Monocytes % 10.2 11.1 H Eosinophils % 2.2 2.8 Basophils % 0.4 0.3 Nucleated Red Blood 0.0 0.0 Cells % Immature 0.010 0.000 Granulocytes # Neutrophils # 2.2 1.5 L Lymphocytes # 1.7 1.6 Monocytes # 0.5 0.4 Eosinophils # 0.1 0.1 Basophils # 0.0 0.0 Nucleated Red Blood 0.0 0.0 Cells # Sodium Level 135 137 Potassium Level 3.8 3.7 Chloride Level 97 101 Carbon Dioxide Level 29 31 Anion Gap 9 5 Blood Urea Nitrogen 21 H 19 Creatinine 0.77 0.79 Est Glomerular > 60 > 60 Filtrat Rate mL/min Glucose Level 93 97 Calcium Level 9.3 9.0 Troponin I < 0.012 < 0.012 < 0.012 Bedside Glucose 133 Hemoglobin A1c 6.3 H Magnesium Level 2.1 Total Bilirubin 0.2 Direct Bilirubin 0.00 Indirect Bilirubin 0.2 Aspartate Amino 25 Transf (AST/SGOT) Alanine 32 Aminotransferase (AL T/SGPT) Alkaline Phosphatase 50 Creatine Kinase 425 H 441 H Creatine Kinase 0.7 0.7 Index Creatinine Kinase MB 2.95 H 3.05 H (Mass) Total Protein 6.7 Albumin 3.8 Globulin 2.90 Albumin/Globulin 1.31 Ratio Triglycerides Level 74 Cholesterol Level 126 LDL Cholesterol, 89 Calculated HDL Cholesterol 22 L Cholesterol/HDL 5.7 Ratio Thyroid Stimulating 0.698 Hormone (TSH) Test 09/16/18 15:07 Bedside Glucose 106 Exam/Review of Systems Exam Vitals Vital Signs Date Temp Pulse Resp B/P (MAP) Pulse Ox O2 O2 Flow FiO2 Time Delivery Rate 09/16/18 98.3 76 20 126/76 98 Room Air 15:45 (93) Results Results 24hrs Laboratory Tests Test 09/15/18 18:57 09/16/18 02:16 09/16/18 04:00 09/16/18 05:29 White Blood Count 4.5 L 3.6 L Red Blood Count 5.45 5.05 Hemoglobin 13.2 L 12.2 L Hematocrit 41.2 L 38.5 L Mean Corpuscular 75.6 L 76.2 L Volume Mean Corpuscular 24.2 L 24.2 L Hemoglobin Mean Corpuscular 32.0 31.7 L Hemoglobin Concent Red Cell 15.0 H 15.1 H Distribution Width Platelet Count 211 192 Mean Platelet Volume 9.8 9.6 Immature 0.200 0.000 L Granulocytes % Neutrophils % 49.9 40.5 Lymphocytes % 37.1 45.3 Monocytes % 10.2 11.1 H Eosinophils % 2.2 2.8 Basophils % 0.4 0.3 Nucleated Red Blood 0.0 0.0 Cells % Immature 0.010 0.000 Granulocytes # Neutrophils # 2.2 1.5 L Lymphocytes # 1.7 1.6 Monocytes # 0.5 0.4 Eosinophils # 0.1 0.1 Basophils # 0.0 0.0 Nucleated Red Blood 0.0 0.0 Cells # Sodium Level 135 137 Potassium Level 3.8 3.7 Chloride Level 97 101 Carbon Dioxide Level 29 31 Anion Gap 9 5 Blood Urea Nitrogen 21 H 19 Creatinine 0.77 0.79 Est Glomerular > 60 > 60 Filtrat Rate mL/min Glucose Level 93 97 Calcium Level 9.3 9.0 Troponin I < 0.012 < 0.012 < 0.012 Bedside Glucose 133 Hemoglobin A1c 6.3 H Magnesium Level 2.1 Total Bilirubin 0.2 Direct Bilirubin 0.00 Indirect Bilirubin 0.2 Aspartate Amino 25 Transf (AST/SGOT) Alanine 32 Aminotransferase (AL T/SGPT) Alkaline Phosphatase 50 Creatine Kinase 425 H 441 H Creatine Kinase 0.7 0.7 Index Creatinine Kinase MB 2.95 H 3.05 H (Mass) Total Protein 6.7 Albumin 3.8 Globulin 2.90 Albumin/Globulin 1.31 Ratio Triglycerides Level 74 Cholesterol Level 126 LDL Cholesterol, 89 Calculated HDL Cholesterol 22 L Cholesterol/HDL 5.7 Ratio Thyroid Stimulating 0.698 Hormone (TSH) Test 09/16/18 15:07 Bedside Glucose 106 Medications Medication Current Medications Ondansetron HCl (Zofran Inj) 4 mg ER BRIDGE PRN IV NAUSEA/VOMITING; Start 09/15/18 at 20:30; Stop 09/16/18 at 20:29 Acetaminophen (Tylenol Tab) 650 mg ER BRIDGE PRN PO .MILD PAIN 1-3 OR TEMP; Start 09/15/18 at 20:30; Stop 09/16/18 at 20:29 Atorvastatin Calcium (Lipitor) 80 mg QHS PO ; Start 09/16/18 at 21:00 Diagnostic Test (Pha) (Accu-Chek) 1 ea 02 XX Last administered on 09/16/18at 02:27; Admin Dose 1 EA; Start 09/16/18 at 02:00 Insulin Aspart (Novolog Insulin Pen) NOVOLOG *MILD* ALGORITHM WITH MEALS BEDTIME SC ; Start 09/16/18 at 08:00 Aspirin (Aspirin) 81 mg DAILY PO Last administered on 09/16/18at 16:11; Admin Dose 81 MG; Start 09/16/18 at 09:00 Miscellaneous Information 1 ea NOTE XX ; Start 09/15/18 at 23:00 Glucose (Glutose) 15 gm Q15M PRN PO DECREASED GLUCOSE; Start 09/15/18 at 23:00 Glucose (Glutose) 22.5 gm Q15M PRN PO DECREASED GLUCOSE; Start 09/15/18 at 23:00 Dextrose (D50w Syringe) 25 ml Q15M PRN IV DECREASED GLUCOSE; Start 09/15/18 at 23:00 Dextrose (D50w Syringe) 50 ml Q15M PRN IV DECREASED GLUCOSE; Start 09/15/18 at 23:00 Glucagon (Glucagen) 1 mg Q15M PRN IM DECREASED GLUCOSE; Start 09/15/18 at 23:00 Glucose (Glutose) 15 gm Q15M PRN BUCCAL DECREASED GLUCOSE; Start 09/15/18 at 23:00 Sodium Chloride 1,000 ml @ 50 mls/hr Q20H IV Last administered on 09/16/18at 16:11; Admin Dose 50 MLS/HR; Start 09/15/18 at 22:36 IV Flush (NS 3 ml) 3 ml PER PROTOCOL IV ; Start 09/15/18 at 23:00 Ondansetron HCl (Zofran Inj) 4 mg Q6H PRN IV NAUSEA/VOMITING; Start 09/15/18 at 23:00 Aspirin (Aspirin) 81 mg DAILY PO ; Start 09/16/18 at 09:00 Acetaminophen (Tylenol Tab) 650 mg Q6H PRN PO .PAIN 1-3 OR TEMP; Start 09/15/18 at 23:00 Acetaminophen/ Hydrocodone Bitart ([place] (5/325)) 1 tab Q6H PRN PO .PAIN 4-6 Last administered on 09/16/18at 04:23; Admin Dose 1 TAB; Start 09/15/18 at 23:00 Losartan Potassium (Cozaar) 50 mg DAILY PO ; Start 09/17/18 at 09:00 ALEX REYNA Sep 16, 2018 16:37
[2018-09-16 19:54] VITALS: BP 161/95; PULSE 77; RESP 19
[2018-09-16] MEDS ORDERED: ATORVASTATIN 80 MG TAB PO SCH (21:00)
[2018-09-17] VITALS (9 sets, daily range): BP systolic 129–156; BP diastolic 75–97; PULSE 52–94; RESP 18–20
[2018-09-17] MEDS: ACCU-CHEK XX SCH (02:00)
[2018-09-17] MEDS: INSULIN ASPART [NOVOLOG] 3 ML PEN SC SCH ×3 (07:55→17:24)
[2018-09-17] MEDS: ASPIRIN 81 MG TAB PO SCH ×2 (08:52→08:53)
[2018-09-17] MEDS: HYDROCODONE/APAP (5/325) TAB PO PRN (08:58)
[2018-09-17] MEDS ORDERED: LOSARTAN 50 MG TAB PO SCH (09:00)
--- NOTE | 2018-09-17 12:47 | PDOCDIS ---
Discharge Instructions CONDITION [id number] Patient Condition: [id number] Stable HOME CARE INSTRUCTIONS: [id number] Diet Instructions: [id number] Low Fat /Cholesterol ACTIVITY: [id number] Activity Restrictions: [id number] Slowly Increase Activity Rest between Activity Avoid heavy lifting FOLLOW UP/APPOINTMENTS Follow-up Plan Please take your medications as prescribed. Please see your doctor in the clinic in the next 1 week. ALEX REYNA Sep 17, 2018 12:47
[2018-09-17] MEDS ORDERED: LOSA50TA2 PO (12:48)
--- NOTE | 2018-09-17 13:09 | DS ---
Date/Time of Note Date/Time of Note DATE: 09/17/18 TIME: 13:06 Discharge Summary Admission/Discharge Info Admit Date/Time Sep 15, 2018 at 20:20 Discharge Date/Time Discharge Diagnosis # Dizziness, generalized weakness-resolved now, possibly secondary high dose of blood pressure medicines, changed, MRI brain negative for acute stroke # Abnormal EKG-Per cardiology no acute intervention at this time # Hypertension-presently stable # Diabetes mellitus -A1c equals 6.3 Patient Condition: Stable Hx of Present Illness 52-year-old male with a past medical history significant for questionable diabetes, hypertension, dyslipidemia who presents to [facility] for generalized symptoms of weakness, neck pain, d izziness. Patient's family member is at bedside and helps with the story, patient's symptoms began approximately 2 days ago, patient also has not been consistently taking his blood pressure medications. Patient states that he does not have any chest pain but feels just generalized malaise and weakness. Patient denies chest pain, shortness of breath, abdominal pain, leg pain. Hospital Course Patient was admitted to telemetry floor. He had echocardiogram performed results are still pending today. MRI of the brain was negative for acute stroke. Over the course of his hospital stay his dizziness symptoms improved, he was able to ambulate, tolerated p.o. diet. Carotid Doppler study was ordered as well the results still pending. His losartan dose was decreased and his calcium channel was stopped as well. Blood pressure remained stable, get dizziness symptoms improved. Once we get clearance from cardiology team, and if the patient's carotid Doppler studies are back, if satisfactory and no acute findings patient will be discharged home today in improved condition. Changes have been made to his blood pressure medicines. See below for full list of discharge medications. Home Meds Active Scripts Losartan Potassium* (Cozaar*) 50 Mg Tablet, 50 MG PO DAILY, #30 TAB 2 Refills Prov:ALEX REYNA. 09/17/18 Reported Medications Atorvastatin* (Atorvastatin*) 80 Mg Tablet, 80 MG PO QHS, #30 TAB 09/15/18 Ibuprofen* (Ibuprofen*) 600 Mg Tablet, 600 MG PO BID, TAB 09/15/18 Metformin Hcl* (Metformin Hcl*) 500 Mg Tablet, 500 MG PO WITH BREAKFAST DINNE, #60 TAB 09/15/18 Discontinued Reported Medications Amlodipine Besylate* (Norvasc*) 5 Mg Tablet, 5 MG PO DAILY, TAB 09/15/18 Losartan-Hydrochlorothiazide (Losartan-HCTZ) 100-12.5 Mg Tab, 1 TAB PO DAILY, T AB 09/15/18 Discontinued Scripts Ibuprofen* (Motrin*) 600 Mg Tab, 600 MG PO Q6H PRN for PAIN AND OR ELEVATED TEMP, #30 TAB Prov:JIMMIE ATKINS MEDICAL PATHOLOGY TEACHER 03/27/18 Mupirocin* (Bactroban*) 2% -22 Gram Oint...g., 1 APPLIC TOP BID for 7 Days, EA Prov:KRISHNA CHAPA MD 12/30/17 Clindamycin Hcl* (Clindamycin Hcl*) 300 Mg Capsule, 300 MG PO TID for 10 Days, CAP Prov:KRISHNA CHAPA MD 12/30/17 Naproxen* (Naprosyn*) 500 Mg Tablet, 500 MG PO BID PRN for PAIN AND/OR INFLAMMATION, #30 TAB Prov:CLAUDIA MINAYA PA-C 04/23/17 Guaifenesin-Dextromethorphan* (Robitussin* DM) 100MG/10MG/5ML Syrup, 5 ML PO Q6H PRN for COUGH, #120 ML 0 Refills Prov:MINNIE RAMSEY PA-C 10/08/15 Amoxicillin* (Amoxicillin*) 500 Mg Cap, 500 MG PO TID, #21 CAP 0 Refills Prov:MINNIE RAMSEY PA-C 10/08/15 Ibuprofen* (Motrin*) 400 Mg Tab, 400 MG PO Q6, #30 TAB 0 Refills Prov:MINNIE RAMSEY PA-C 10/08/15 Follow-up Plan Please take your medications as prescribed. Please see your doctor in the clinic in the next 1 week. Primary Care Provider [facility] Pending Labs Laboratory Tests Test 09/16/18 15:07 09/16/18 17:32 09/16/18 21:00 09/17/18 07:59 Bedside 106 112 88 95 Glucose mg/dL (70-220) mg/dL (70-220) mg/dL (70-220) mg/dL (70-220) Test 09/17/18 12:07 Bedside 111 Glucose mg/dL (70-220) ALEX REYNA Sep 17, 2018 13:09
[2018-09-17] MEDS: SOD CHLORIDE 0.9% 1,000 ML IV SCH (14:36)
--- NOTE | 2018-09-17 15:57 | CONS ---
Consult Date/Type/Reason Admit Date/Time Sep 15, 2018 at 20:20 Initial Consult Date 09/16/18 Requesting Provider: JEIMY MINAYA Date/Time of Note DATE: 09/17/18 TIME: 15:56 Subjective Cardiology follow-up progress note Subjective: Discussed with the staff and telemetry was reviewed. Patient remains normal sinus rhythm He denies any chest pain or pressure or palpitation to me 50: General: Obese gentleman in no acute distress HEENT: NC/AT. pupils are equal. round. NECK: NO JVD. no stridor. CV: RRR. systolic murmur; no gallop or rubs. PULM: no wheezing or rhonchi. GI: SOFT, NT, ND, no rebound or guarding Extremity: trace B/L LE edema. no clubbing. neuro: awake and alert, OX3. Psych: calm and pleasant rectal: deferred : normal EKG normal sinus rhythm. Nonspecific ST-T wave abnormalities Objective Vitals Vital Signs Date Temp Pulse Resp B/P (MAP) Pulse Ox O2 O2 Flow FiO2 Time Delivery Rate 09/17/18 98.1 73 18 144/97 96 Room Air 15:22 (113) Intake and Output 09/16/18 09/16/18 09/17/18 1515:00 23:00 07:00 IntakeIntake Total 480 ml 500 ml BalanceBalance 480 ml 500 ml Results/Medications Result Diagram: 09/16/18 0400 09/16/18 0400 Results 24 hrs Laboratory Tests Test 09/16/18 17:32 09/16/18 21:00 09/17/18 07:59 09/17/18 12:07 Bedside Glucose 112 88 95 111 Home Meds Active Scripts Losartan Potassium* (Cozaar*) 50 Mg Tablet, 50 MG PO DAILY, #30 TAB 2 Refills Prov:ALEX REYNA S. 09/17/18 Reported Medications Atorvastatin* (Atorvastatin*) 80 Mg Tablet, 80 MG PO QHS, #30 TAB 09/15/18 Ibuprofen* (Ibuprofen*) 600 Mg Tablet, 600 MG PO BID, TAB 09/15/18 Metformin Hcl* (Metformin Hcl*) 500 Mg Tablet, 500 MG PO WITH BREAKFAST DINNE, #60 TAB 09/15/18 Discontinued Reported Medications Amlodipine Besylate* (Norvasc*) 5 Mg Tablet, 5 MG PO DAILY, TAB 2/15/19 Losartan-Hydrochlorothiazide (Losartan-HCTZ) 100-12.5 Mg Tab, 1 TAB PO DAILY, TAB 09/15/18 Discontinued Scripts Ibuprofen* (Motrin*) 600 Mg Tab, 600 MG PO Q6H PRN for PAIN AND OR ELEVATED TEMP, #30 TAB Prov:WILBERTJIMMIEKATRIN Salazar NP 03/27/18 Mupirocin* (Bactroban*) 2% -22 Gram Oint...g., 1 APPLIC TOP BID for 7 Days, EA Prov:KRISHNA CHAPA MD 12/30/17 Clindamycin Hcl* (Clindamycin Hcl*) 300 Mg Capsule, 300 MG PO TID for 10 Days, CAP Prov:KRISHNA CHAPA MD 12/30/17 Naproxen* (Naprosyn*) 500 Mg Tablet, 500 MG PO BID PRN for PAIN AND/OR INFLAMMATION, #30 TAB Prov:CLAUDIA MINAYA PA-C 04/23/17 Guaifenesin-Dextromethorphan* (Robitussin* DM) 100MG/10MG/5ML Syrup, 5 ML PO Q6H PRN for COUGH, #120 ML 0 Refills Prov:MINNIE RAMSEY PA-C 10/08/15 Amoxicillin* (Amoxicillin*) 500 Mg Cap, 500 MG PO TID, #21 CAP 0 Refills Prov:MINNIE RAMSEY PA-C 10/08/15 Ibuprofen* (Motrin*) 400 Mg Tab, 400 MG PO Q6, #30 TAB 0 Refills Prov:MINNIE RAMSEY PA-C 10/08/15 Medications Current Medications Atorvastatin Calcium (Lipitor) 80 mg QHS PO Last administered on 09/16/18at 21:03; Admin Dose 80 MG; Start 09/16/18 at 21:00 Diagnostic Test (Pha) (Accu-Chek) 1 ea 02 XX Last administered on 09/16/18at 02:27; Admin Dose 1 EA; Start 09/16/18 at 02:00 Insulin Aspart (Novolog Insulin Pen) NOVOLOG *MILD* ALGORITHM WITH MEALS BEDTIME SC ; Start 09/16/18 at 08:00 Aspirin (Aspirin) 81 mg DAILY PO Last administered on 09/17/18at 08:52; Admin Dose 81 MG; Start 09/16/18 at 09:00 Miscellaneous Information 1 ea NOTE XX ; Start 09/15/18 at 23:00 Glucose (Glutose) 15 gm Q15M PRN PO DECREASED GLUCOSE; Start 09/15/18 at 23:00 Glucose (Glutose) 22.5 gm Q15M PRN PO DECREASED GLUCOSE; Start 09/15/18 at 23:00 Dextrose (D50w Syringe) 25 ml Q15M PRN IV DECREASED GLUCOSE; Start 09/15/18 at 23:00 Dextrose (D50w Syringe) 50 ml Q15M PRN IV DECREASED GLUCOSE; Start 09/15/18 at 23:00 Glucagon (Glucagen) 1 mg Q15M PRN IM DECREASED GLUCOSE; Start 09/15/18 at 23:00 Glucose (Glutose) 15 gm Q15M PRN BUCCAL DECREASED GLUCOSE; Start 09/15/18 at 2 3:00 Sodium Chloride 1,000 ml @ 50 mls/hr Q20H IV Last administered on 09/16/18at 16:11; Admin Dose 50 MLS/HR; Start 09/15/18 at 22:36 IV Flush (NS 3 ml) 3 ml PER PROTOCOL IV ; Start 09/15/18 at 23:00 Ondansetron HCl (Zofran Inj) 4 mg Q6H PRN IV NAUSEA/VOMITING; Start 09/15/18 at 23:00 Aspirin (Aspirin) 81 mg DAILY PO ; Start 09/16/18 at 09:00 Acetaminophen (Tylenol Tab) 650 mg Q6H PRN PO .PAIN 1-3 OR TEMP Last administered on 09/16/18at 23:32; Admin Dose 650 MG; Start 09/15/18 at 23:00 Acetaminophen/ Hydrocodone Bitart (Rufe (5/325)) 1 tab Q6H PRN PO .PAIN 4-6 Last administered on 09/17/18at 08:58; Admin Dose 1 TAB; Start 09/15/18 at 23:00 Losartan Potassium (Cozaar) 50 mg DAILY PO Last administered on 09/17/18at 08:52; Admin Dose 50 MG; Start 09/17/18 at 09:00 Assessment/Plan Hospital Course (Demo Recall) 1. Abnormal EKG with no chest pain and negative cardiac enzyme 2. Hypertension 3. Diabetes 4. History of CVA 5. Dyslipidemia 6. Obesity Recommendations At this point absence of any cardiac symptoms I recommend aggressive risk factor modification. Continue losartan and adjusted as an outpatient as needed. Diabetic control as per internal medicine. Given history of CVA patient should be on aspirin or Plavix daily Echocardiogram has been ordered and waiting to be done. Otherwise no further cardiac workup would be needed DC planning as per internal medicine Thank you for his referral. We will continue to follow along with you until Dr. Shamji. Posadas returns on Tuesday LASHAUN NICHOLS MD [facility] LASHAUN NICHOLS MD Sep 17, 2018 15:57
--- NOTE | 2018-09-17 17:27 | RADRPT ---
Echocardiogram Report Patient Name: [facility] : 1965 (52y 10m)Study Date: 09/17/2018 1:07:47 PM Gender: MAccession #: [id number] Tech: MAGALYS Location: Ref.Physician: JEIMY MINAYA Height(Cm): BSA: Weight(Kg): 112.5 Quality: AdequateAccount #: Procedures: Echocardiographic Report: Transthoracic echocardiogram with complete 2D, M-Mode, and doppler examination. Indications: Evaluate Left Ventricular function. Measurements: 2D/M Mode Doppler Measurement Value Normal Range Measurement Value Normal Range LVIDd 2D 3.4 [ 4.2 - 5.8 ] cm AV Peak Logan 1.6 [ 100.0 - 170.0 ] cm/se c LVIDs 2D 2.3 [ 2.5 - 4.0 ] cm AV Peak PG 10.0 [ 2.0 - 9.0 ] mmHg LVPWd 2D 1.5 [ 0.6 - 1.0 ] cm LVOT Peak Logan 1.0 [ 70.0 - 110.0 ] cm/sec IVSd 2D 1.8 [ 0.6 - 1.0 ] cm LVOT Peak PG 4.0 [ 2.0 - 6.0 ] mmHg AoR Diam 2D 3.8 [ 2.6 - 3.4 ] cm MV E Peak Logan 0.7 [ 60.0 - 130.0 ] cm/sec EDV 2D 47.4 [ 62.0 - 150.0 ] ml MV A Peak Logan 0.9 [ 100.0 - 120.0 ] cm/se c ESV 2D 18.1 [ 21.0 - 61.0 ] ml MV E/A 0.8 [ 0.8 - 1.5 ] ratio EF 2D 61.8 [ 52.0 - 72.0 ] percent MV PHT 62.0 [ 20.0 - 100.0 ] msec LA Dimen 2D 3.9 [ 3.0 - 4.0 ] cm MV Decel Time 211 [ 104 - 258 ] msec MV Decel Mineral 3 Lat E` Logan 0.1 [ 10.0 - 15.0 ] cm/sec Lateral E/E` 8.3 [ 1.0 - 2.0 ] ratio Med E` Logan 0.1 cm/sec MV E/A 0.8 [ 0.8 - 1.5 ] ratio MVA PHT 3.5 [ 2.0 - 4.0 ] cm2 PV Peak Logan 1.1 [ 40.0 - 80.0 ] cm/sec PV Peak PG 5.0 mmHg Findings: Left Ventricle: Normal left ventricular systolic function. Normal left ventricular cavity size. Moderate concentric left ventricular hypertrophy. Ejection fraction is visually estimated at 65 %. Tissue Doppler/Mitral Doppler indices are consistent with impaired relaxation (Stage I diastolic dysfunction). Right Ventricle: Normal right ventricular size. Normal right ventricular systolic function. Left Atrium: The left atrium is normal in size. Right Atrium: The right atrium is normal in size. Mitral Valve: Mitral valve leaflets appear mildly thickened. Mild mitral annular calcification. Trace mitral regurgitation. Aortic Valve: No significant aortic stenosis or insufficiency. Aortic cusps appear mildly calcified. Tricuspid Valve: Normal appearance of the tricuspid valve. Unable to obtain RVSP due to minimal presence of tricuspid regurgitation. Pulmonic Valve: Normal pulmonic valve appearance. Pericardium: Normal pericardium with no significant pericardial effusion. Aorta: Normal aortic root. IVC: Normal size and normal respiratory collapse consistent with normal right atrial pressure. Conclusions: Normal left ventricular systolic function. Normal left ventricular cavity size. Moderate concentric left ventricular hypertrophy. Ejection fraction is visually estimated at 65 %. Tissue Doppler/Mitral Doppler indices are consistent with impaired relaxation (Stage I diastolic dysfunction). Mitral valve leaflets appear mildly thickened. Mild mitral annular calcification. Trace mitral regurgitation. No significant aortic stenosis or insufficiency. Aortic cusps appear mildly calcified. Normal appearance of the tricuspid valve. Unable to obtain RVSP due to minimal presence of tricuspid regurgitation. Electronically Signed By: Satish Chaves 2018-09-17 17:26:50 PST
== END 2018-09-17 18:15 | disposition home or self-care (01) ==
LOC: E/R 18:18 → INTOOBSV 20:20 → TEL 20:20 → CANRESERV 23:38
PROVIDERS: ADMIT Internal Medicine; ATTEND Hospitalist
DX: I10 Essential (primary) hypertension (principal); R42 Dizziness and giddiness; R94.31 Abnormal electrocardiogram [ECG] [EKG]; E11.9 Type 2 diabetes mellitus without complications; R53.1 Weakness; E78.5 Hyperlipidemia, unspecified; E66.9 Obesity, unspecified; Z86.73 Personal history of transient ischemic attack (TIA), and cerebral infarction without residual deficits
CPT/HCPCS: 36415; 70450; 70551; 71045; 80048; 80053; 80061; 82550; 82553; 82962; 83036; 83735; 84443; 84484; 85025; 93005; 93306; 93880; 96374; J1815; J2270; J7030; Z7500; Z7502; Z7610; G0378

== ENCOUNTER 2018-12-11 17:29 | Emergency (ER) | payer SELFPAY ==
[~2018-12-11] VITALS: Ht 175.3 cm; Wt 110.4 kg
[~2018-12-11 17:29] MED LIST changes: -AMOX500C2 PO; +ATOR-2 PO; -CLIN300C10 PO; -GUAI5SYR2 PO; -IBUP-1561 PO; +LOSA50TA2 PO; +METF500T24 PO; -MUPI22OI2 TOP; -NAPR-985 PO
[2018-12-11 18:26] VITALS: BP 142/96; PULSE 86; RESP 18; Ht 175.3 cm; Wt 110.4 kg
== END 2018-12-11 20:07 | disposition left against medical advice (07) ==
LOC: FTE 17:29
DX: Z53.21 Procedure and treatment not carried out due to patient leaving prior to being seen by health care provider (principal)

== ENCOUNTER 2019-06-04 14:48 | Emergency (ER) | payer OTHER ==
[~2019-06-04] VITALS: Ht 172.7 cm; Wt 115.7 kg
[~2019-06-04 14:48] MED LIST changes: +ACET-141 PO
[2019-06-04 14:53] VITALS: BP 157/76; PULSE 75; RESP 20; Ht 172.7 cm; Wt 115.7 kg
== END 2019-06-04 14:53 | disposition home or self-care (01) ==
LOC: E/R 14:48
DX: M79.89 Other specified soft tissue disorders (principal); M25.571 Pain in right ankle and joints of right foot; Z79.84 Long term (current) use of oral hypoglycemic drugs; Z86.73 Personal history of transient ischemic attack (TIA), and cerebral infarction without residual deficits
CPT/HCPCS: 73510; 73610; 80053; 85025; 93005; Z7502; 73502